=== PATIENT | male | born 1960 | race Caucasian/White ===

== ENCOUNTER 2019-07-06 11:27 | Emergency (ER) | payer OTHER ==
[2019-07-06 11:46] VITALS: BP 139/65
--- NOTE | 2019-07-06 12:27 | RADIOLOGY REPORT (SQ) ---
EXAM DESCRIPTION: SHOULDER LEFT 2 OR MORE VIEWS COMPLETED DATE/TIME: 07/06/2019 12:10 pm REASON FOR STUDY: fall; positive deformity COMPARISON: None. NUMBER OF VIEWS: Two views. TECHNIQUE: Frontal and Y-view images acquired of the left shoulder. LIMITATIONS: None. FINDINGS: MINERALIZATION: Decreased. BONES: There is a transversely oriented surgical neck fracture of the left proximal humerus with appr oximately 18 mm anteromedial displacement of the distal fracture fragment. Glenohumeral joint appear s intact. JOINTS: No definite dislocation. Acromioclavicular and glenohumeral osteoarthropathy. VISUALIZED LUNGS AND RIBS: No pneumothorax. No rib fracture. SOFT TISSUES: No radiopaque foreign body. OTHER: No other significant finding. IMPRESSION: 1. Transversely oriented left humeral surgical neck fracture with approximately 18 mm a nteromedial displacement of the distal fracture fragment. 2. No definitive dislocation. 3. Decreased osseous mineralization. TECHNICAL DOCUMENTATION: JOB ID: [id number] 2010 [employer]- All Rights Reserved Reading location - IP/workstation name: [email or web address]
[2019-07-06] MEDS ORDERED: OXYCODONE-ACETAMINOPHEN 5-325 MG TABLET PO ONE (14:02)
--- NOTE | 2019-07-06 14:55 | RADIOLOGY REPORT (SQ) ---
EXAM DESCRIPTION: CT LT UPPER EXTREMITY WITHOUT COMPLETED DATE/TIME: 07/06/2019 2:32 pm REASON FOR STUDY: evaluate for dislocation COMPARISON: Same day radiograph TECHNIQUE: Axial imaging performed through the leftshoulder with reformatted oblique coronal and obl ique sagittal imaging windowed for bone and soft tissues. All CT scanners at this facility use dose modulation, iterative reconstruction, and/or weight based d osing when appropriate to reduce radiation dose to as low as reasonably achievable (ALARA). [facility]: Dose Right [facility]: CareDose [facility]: Dose Right [facility]: Teradose 4D [facility]: [employer] RADIATION DOSE: CT Rad equipment meets quality standard of care and radiation dose reduction techniq ues were employed. CTDIvol: 12.4 mGy. DLP: 242 mGy-cm. mGy. LIMITATIONS: None. FINDINGS: SOFT TISSUES: No radiopaque foreign body. Diffuse subcutaneous stranding about the should er. BONY ARCHITECTURE: Comminuted transversely oriented surgical neck fracture of the left humerus with a pproximately 16 mm of anteromedial displacement of the distal fracture fragment. Additionally there is cortical lucency extending through the greater tuberosity compatible with minimally displaced carolynn omic neck fracture. There is mild displacement and posterior angulation of the largest distal fractu re fragment GLENOHUMERAL JOINT: No evidence of glenohumeral dislocation. There is minimal glenohumeral osteoarth ropathy and osteophytosis. ACROMION AND AC JOINT: No evidence of AC joint disruption. Moderate acromioclavicular osteoarthropat hy ROTATOR CUFF: Grossly intact. Mild decreased subacromial space. GLENOID, LABRUM AND BICEPS: No evidence of glenoid fracture. Limited evaluation of the labrum. Daphne ps tendon appears within the bicipital groove although limited evaluation OTHER: No other significant finding. IMPRESSION: 1. No evidence of glenohumeral or acromioclavicular dislocation. 2. Comminuted transversely oriented left humeral surgical neck fracture. Additionally, minimally di splaced fracture line extends through the proximal humerus compatible with an anatomic neck fracture. TECHNICAL DOCUMENTATION: JOB ID: [id number] Quality ID # [id number]: Final reports with documentation of one or more dose reduction techniques (e.g., Au tomated exposure control, adjustment of the mA and/or kV according to patient size, use of iterative reconstruction technique) 2010 [employer]- All Rights Reserved Reading location - IP/workstation name: [email or web address]
[2019-07-06 15:17] LABS: ABSOLUTE BASOPHILS # (AUTO) 0.1 10^3/uL (0.0-0.2); ABSOLUTE EOSINOPHILS # (AUTO) 0.1 10^3/uL (0.0-0.6); ABSOLUTE LYMPHOCYTES (AUTO) 2.2 10^3/uL (0.5-4.7); ABSOLUTE MONOCYTES (AUTO) 0.9 10^3/uL (0.1-1.4); ABSOLUTE NEUT (AUTO) 11.2 10^3/uL (1.7-8.2); BASOPHILS % (AUTO) 0.5 % (0-2); EOSINOPHILS % (AUTO) 0.7 % (0-6); HEMATOCRIT 39.1 % (37.9-51.0); HEMOGLOBIN 14.2 g/dL (13.5-17.0); LYMPHOCYTES % (AUTO) 15.2 % (13-45); MEAN CORPUSCULAR HEMOGLOBIN 32.1 pg (27.0-33.4); MEAN CORPUSCULAR HGB CONC 36.4 g/dL (32.0-36.0); MEAN CORPUSCULAR VOLUME 88 fl (80-97); MONOCYTES % (AUTO) 6.4 % (3-13); PLATELET COUNT 503 10^3/uL (150-450); RED BLOOD COUNT 4.43 10^6/uL (4.35-5.55); RED CELL DISTRIBUTION WIDTH 13.2 % (11.5-14.0); SEGMENTED NEUTROPHILS % (AUTO) 77.2 % (42-78); TOTAL CELLS COUNTED % (AUTO) 100 %; WHITE BLOOD COUNT 14.5 10^3/uL (4.0-10.5)
[2019-07-06 15:32] LABS: ALKALINE PHOSPHATASE 46 U/L (38-126); ANION GAP 13 (5-19); ASPARTATE AMINO TRANSFERASE 42 U/L (17-59); BILIRUBIN,DIRECT 0.4 mg/dL (0.0-0.4); BILIRUBIN,TOTAL 0.6 mg/dL (0.2-1.3); BLOOD UREA NITROGEN 23 mg/dL (7-20); CALCIUM 11.8 mg/dL (8.4-10.2); CARBON DIOXIDE 27 mmol/L (22-30); CHLORIDE 101 mmol/L (98-107); GLUCOSE 210 mg/dL (75-110); POTASSIUM 5.4 mmol/L (3.6-5.0); TOTAL PROTEIN 8.6 g/dL (6.3-8.2)
[2019-07-06] MEDS ORDERED: HYDROCODONE/ACETAMINOPHEN 5-325 MG (6 TAB/ER DISP) PO PRN (15:39)
--- NOTE | 2019-07-06 15:57 | ER Document Report ---
Doctor's Note Notes: 07/06/19 15:56 Prescription for Percocet filed electronically by myself for Dr. Penaloza as her electronic prescribing is not active at this time.
--- NOTE | 2019-07-06 17:36 | ER Document Report ---
Entered by ELENA LAU SCRIBE 07/06/19 1351 Acting as scribe for:CHOLO SALAZAR DO ED Extremity Problem, Upper <CHETNA LEHMAN - Last Filed: 07/06/19 15:51> - General Mode of Arrival: Ambulatory Information source: Patient TRAVEL OUTSIDE OF THE [place] IN LAST 30 DAYS: No <CHOLO SALAZAR - Last Filed: 07/06/19 17:35> - General Chief Complaint: Shoulder Pain Stated Complaint: SHOULDER PAIN Time Seen by Provider: 07/06/19 12:46 Primary Care Provider: VIKASH AC DO [ACTIVE STAFF] - Follow up in 3-5 days Notes: This 59-year-old male patient presents to the emergency department today with complaints of left upper extremity pain. Patient states [place] and he slipped and fell to his knees. Patient states he went to get up from his knees and fell backwards on an outstretched left arm. Patient states his legs felt weak which is why he thinks he fell. Patient adds that he has been followed for hypercalcemia for the last x9 years and they "could never find the reason why". Patient states his weakness today was not more than usual. Patient states he did not hit his head and did not lose consciousness. Patient denies any neck pain or back pain. (CHOLO SALAZAR) - Related Data Allergies/Adverse Reactions: gabapentin Allergy (Verified 07/06/19 11:46) Past Medical History - General Information source: Patient - Social History Smoking Status: Never Smoker Cigarette use (# per day): No Frequency of alcohol use: None Drug Abuse: None Occupation: manufacturing electrician Lives with: Family Family History: Reviewed & Not Pertinent Patient has suicidal ideation: No Patient has homicidal ideation: No - Past Medical History Cardiac Medical History: Reports: Hx Atrial Fibrillation Past Surgical History: Reports: Hx Cardiac Surgery - ablation for A-fib <CHOLO SALAZAR - Last Filed: 07/06/19 17:35> Review of Systems - Review of Systems Constitutional: See HPI, Weakness EENT: No symptoms reported Cardiovascular: No symptoms reported Respiratory: No symptoms reported Gastrointestinal: No symptoms reported Genitourinary: No symptoms reported Male Genitourinary: No symptoms reported Musculoskeletal: See HPI, Joint pain - left upper extremity Skin: No symptoms reported Hematologic/Lymphatic: No symptoms reported Neurological/Psychological: denies: Lost consciousness -: Yes All other systems reviewed and negative <CHOLO SALAZAR - Last Filed: 07/06/19 17:35> Physical Exam - Vital signs Interpretation: Normal - General General appearance: Appears well, Alert - HEENT Head: Normocephalic, Atraumatic Eyes: Normal Pupils: PERRL - Respiratory Respiratory status: No respiratory distress Chest status: Nontender Breath sounds: Normal Chest palpation: Normal - Cardiovascular Rhythm: Regular Heart sounds: Normal auscultation Murmur: No - Abdominal Inspection: Normal Distension: No distension Bowel sounds: Normal Tenderness: Nontender Organomegaly: No organomegaly - Back Back: Normal, Nontender - Extremities General upper extremity: Tender, Normal color, Normal temperature General lower extremity: Normal inspection, Nontender, Normal color, Normal ROM, Normal temperature, Normal weight bearing. No: Lanre's sign Elbow: Abrasion Forearm: Normal Wrist: Normal Hand: Normal - Neurological Neuro grossly intact: Yes Cognition: Normal Orientation: AAOx4 [place] Coma Scale Eye Opening: Spontaneous Reina Coma Scale Verbal: Oriented Reina Coma Scale Motor: Obeys Commands Reina Coma Scale Total: 15 Speech: Normal Motor strength normal: LUE, RUE, LLE, RLE Sensory: Normal - Psychological Associated symptoms: Normal affect, Normal mood - Skin Skin Temperature: Warm Skin Moisture: Dry Skin Color: Normal <CHOLO SALAZAR - Last Filed: 07/06/19 17:35> - Vital signs Vitals: Temp Pulse Resp BP Pulse Ox 97.8 F 79 18 139/65 H 99 07/06/19 11:37 07/06/19 11:37 07/06/19 11:37 07/06/19 11:37 07/06/19 11:37 Course - Laboratory Result Diagrams: 07/06/19 14:45 07/06/19 14:45 <CHETNA LEHMAN - Last Filed: 07/06/19 15:51> - Laboratory Result Diagrams: 07/06/19 14:45 07/06/19 14:45 - Diagnostic Test Radiology reviewed: Image reviewed, Reports reviewed <CHOLO SALAZAR - Last Filed: 07/06/19 17:35> - Re-evaluation Re-evalutation: 07/06/19 1600 Patient is a 59-year-old male who had a fall earlier today and is complaining of left arm pain. Notable deformity and fracture on x-ray. Patient was discussed with Dr. Ac from orthopedics who recommended CT to exclude dislocation. CT performed and no dislocation or need for emergent intervention. Patient will be discharged with a sling, instructions to follow-up with orthopedics. Of note, he has a history of hypercalcemia which is already being followed by an grill prep cook in [place] where she is from. They are planning to go back to [place] in the next few days. He has been given a copy of his imaging and reports. Return if any worsening concerning symptoms such as numbness paresthesias, weakness, pain out of proportion. Understands agrees with plan. Stable for discharge. Adamantly denies hitting his head, losing consciousness, or any other concerns. (CHOLO SALAZAR) - Vital Signs Vital signs: Temp Pulse Resp BP Pulse Ox 97.8 F 79 18 139/65 H 99 07/06/19 11:37 07/06/19 11:37 07/06/19 11:37 07/06/19 11:37 07/06/19 11:37 - Laboratory Laboratory results interpreted by me: 07/06/19 07/06/19 14:45 14:45 WBC 14.5 H MCHC 36.4 H Plt Count 503 H Absolute Neuts (auto) 11.2 H Potassium 5.4 H BUN 23 H Glucose 210 H Calcium 11.8 H Total Protein 8.6 H Discharge <CHETNA LEHMAN - Last Filed: 07/06/19 15:51> <CHOLO SALAZAR - Last Filed: 07/06/19 17:35> - Discharge Clinical Impression: Hypercalcemia Humerus fracture Qualifiers: Encounter type: initial encounter Humerus Location: proximal Fracture type: closed Fracture alignment: displaced Laterality: left Condition: Stable Disposition: HOME, SELF-CARE Instructions: Fracture Proximal Humerus, Sling as Treatment ([facility]) Additional Instructions: Please follow-up with your grill prep cook and an orthopedic doctor when you get back to [place]. Please take your CD with you. Prescriptions: Ondansetron [Zofran Odt 4 mg Tablet] 1 tab PO Q6HP PRN #15 tab.rapdis PRN Reason: For Nausea/Vomiting Docusate Sodium [Colace 100 mg Capsule] 100 mg PO BID #60 capsule Oxycodone HCl/Acetaminophen [Percocet 5-325 mg Tablet] 1 tab PO Q6H PRN #20 tablet PRN Reason: Forms: Elevated Blood Pressure Referrals: VIKASH AC DO [ACTIVE STAFF] - Follow up in 3-5 days I personally performed the services described in the documentation, reviewed and edited the documentation which was dictated to the scribe in my presence, and it accurately records my words and actions.
== END 2019-07-06 16:21 | disposition home or self-care (01) ==
LOC: ER 11:27
DX: S42.202A Unspecified fracture of upper end of left humerus, initial encounter for closed fracture (principal); E83.52 Hypercalcemia; M25.512 Pain in left shoulder; M79.602 Pain in left arm; M62.81 Muscle weakness (generalized); W19.XXXA Unspecified fall, initial encounter
CPT/HCPCS: 36415; 80053; 85025; 99284